=== PATIENT | female | born 1995 | race Caucasian/White ===

== ENCOUNTER 2016-09-02 11:42 | Emergency (ER) | payer OTHER ==
[2016-09-02 14:24] LABS: BUN/CREATININE RATIO 13 (0-10)
[2016-09-02 14:44] LABS: HEMOGLOBIN 15.3 gm/dl (12.3-15.3); RED BLOOD COUNT 4.81 M/UL (4.00-5.10); WHITE BLOOD COUNT 10.9 K/UL (4.5-11.0)
== END 2016-09-02 17:28 | disposition home or self-care (01) ==
LOC: ER1 11:42
PROVIDERS: Nurse Practitioner Family
DX: R10.84 Generalized abdominal pain (principal); F17.210 Nicotine dependence, cigarettes, uncomplicated; Z88.1 Allergy status to other antibiotic agents
CPT/HCPCS: 36415; 80053; 81001; 82150; 83690; 84703; 85025; 87086; 96361; 96374; 96375; 99284; J2270; J2405; J7050; Q9962